=== PATIENT | male | born 1980 | race African-American/Black ===

== ENCOUNTER 2017-07-18 15:45 | Emergency (ER) | payer SELFPAY ==
[~2017-07-18] VITALS: Ht 167.6 cm; Wt 72.7 kg
[2017-07-18 16:17] LABS: BASOPHILS % (AUTO) 0.9 % (0.0-2.0); EOSINOPHILS % (AUTO) 7.8 % (1.0-6.0); HEMATOCRIT 41.9 % (41-53); HEMOGLOBIN 14.3 g/dL (13.5-17.5); LYMPHOCYTES # (AUTO) 2.2 K/uL (1.0-4.8); LYMPHOCYTES % (AUTO) 28.8 % (22.0-44.0); MEAN CORPUSCULAR VOLUME 91 fL (80-100); MONOCYTES # (AUTO) 0.8 K/uL (0.1-1.0); MONOCYTES % (AUTO) 10.4 % (2.0-9.0); NEUTROPHILS # (AUTO) 3.9 K/uL (1.8-7.7); NEUTROPHILS % (AUTO) 52.1 % (40.0-70.0); PLATELET COUNT (AUTO) 256 K/uL (150-450); RED CELL DISTRIBUTION WIDTH 13.7 % (11.5-14.5); WHITE BLOOD COUNT (AUTO) 7.5 K/uL (4.5-11.0)
[2017-07-18 16:30] LABS: ANION GAP 9 mmol/L (8-16); CARBON DIOXIDE 27 mmol/L (22-29); CHLORIDE 107 mmol/L (98-107); CREATININE 1.48 mg/dL (0.60-1.30); GLOMERULAR FILTR. RATE CALC > 60 mL/min (>60); POTASSIUM 3.7 mmol/L (3.5-5.1); SODIUM SERUM 143 mmol/L (136-145); UREA NITROGEN, BLOOD 11 mg/dL (7-18)
[2017-07-18 16:34] LABS: ALANINE AMINOTRANSFERASE 42 U/L (12-78); ALBUMIN 3.3 g/dL (3.4-5.0); ASPARTATE AMINOTRANSFERASE 32 U/L (15-37); BILIRUBIN,TOTAL 0.2 mg/dL (0.1-1.0); TOTAL PROTEIN, SERUM 6.6 g/dL (6.4-8.2)
[2017-07-18 16:44] LABS: APPEARANCE,URINE CLEAR (CLEAR); GLUCOSE, URINE (UA) NEGATIVE (NEGATIVE); KETONES,URINE NEGATIVE (NEGATIVE); LEUKOCYTE ESTERASE ,URINE NEGATIVE (NEGATIVE); OCCULT BLOOD,URINE NEGATIVE (NEGATIVE); PROTEIN,URINE NEGATIVE (NEGATIVE)
[2017-07-18] MEDS ORDERED: ONDANSETRON HCL 4 MG/2 ML VIAL IVP ONE (16:45)
[2017-07-18] MEDS ORDERED: SODIUM CHLORIDE 0.9% 1,000 ML IV ONE (16:45)
[2017-07-18 17:05] LABS: ADD UA MICROSCOPIC NO
[2017-07-18 17:52] VITALS: BP 128/87
== END 2017-07-18 18:24 | disposition home or self-care (01) ==
LOC: EMS 15:45
DX: R10.9 Unspecified abdominal pain (principal); R11.2 Nausea with vomiting, unspecified; R19.7 Diarrhea, unspecified
CPT/HCPCS: 93005; 99285

== ENCOUNTER 2020-04-10 00:14 | Emergency (ER) | payer MEDICAID ==
[~2020-04-10] VITALS: Ht 167.6 cm; Wt 70.5 kg
[2020-04-10] MEDS ORDERED: PERTUSS(ACELL),DIPH,TET VAC/PF 0.5 ML VIAL IM ONE (02:00)
[2020-04-10] MEDS ORDERED: LIDOCAINE 5% 36 GM OINTMENT TP ONE (02:00)
[2020-04-10] MEDS ORDERED: AMOX TR/POT CLAV 500 MG/125 MG TABLET PO ONE (02:00)
[2020-04-10] MEDS ORDERED: LIDOCAINE 4% 50 ML SOLUTION TP ONE (02:15)
[2020-04-10 03:30] VITALS: BP 151/98
[2020-04-10] MEDS ORDERED: AMOX TR/POT CLAV 875 MG/125 MG TABLET ONE (03:50)
[2020-04-10] MEDS ORDERED: AMOX TR/POT CLAV 875 MG/125 MG TABLET PO ONE (04:45)
== END 2020-04-10 04:53 | disposition home or self-care (01) ==
LOC: EMS 00:14
DX: S01.81XA Laceration without foreign body of other part of head, initial encounter (principal); F12.90 Cannabis use, unspecified, uncomplicated; W50.3XXA Accidental bite by another person, initial encounter; Y93.89 Activity, other specified; Y92.89 Other specified places as the place of occurrence of the external cause; Y99.8 Other external cause status
CPT/HCPCS: 90715

== ENCOUNTER 2024-12-23 09:43 | Emergency (ER) | payer MEDICAID, OTHER ==
[~2024-12-23] VITALS: Ht 167.6 cm; Wt 77.3 kg
[2024-12-23 09:45] VITALS: TEMP 98.3
[2024-12-23] MEDS ORDERED: DIVA125C20 PO (09:51)
[2024-12-23] MEDS ORDERED: PROP20TA96 PO (09:51)
[2024-12-23] MEDS ORDERED: SENN-374 PO (09:51)
[2024-12-23] MEDS ORDERED: DULO-113 PO (09:51)
[2024-12-23] MEDS ORDERED: GABA-534 PO (09:51)
[2024-12-23] MEDS ORDERED: AMLO5TAB66 PO (09:51)
[2024-12-23 11:20] VITALS: BP 133/85; PULSE 100; RESP 17; O2SAT 98
[2024-12-23 11:32] LABS: BASOPHILS % (AUTO) 0.6 % (0.0-2.0); EOSINOPHILS % (AUTO) 1.3 % (1.0-6.0); HEMOGLOBIN 14.5 g/dL (13.5-17.5); LYMPHOCYTES # (AUTO) 2.4 K/uL (1.0-4.8); LYMPHOCYTES % (AUTO) 27.6 % (22.0-44.0); MEAN CORPUSCULAR HEMOGLOBIN 30.7 pg (26.0-34.0); MEAN CORPUSCULAR VOLUME 93 fL (80-100); MONOCYTES # (AUTO) 1.1 K/uL (0.1-1.0); MONOCYTES % (AUTO) 12.4 % (2.0-9.0); NEUTROPHILS % (AUTO) 58.1 % (40.0-70.0); PLATELET COUNT (AUTO) 213 K/uL (150-450); RED BLOOD CELL COUNT(AUTO) 4.73 MIL/uL (4.50-5.90); WHITE BLOOD COUNT (AUTO) 8.6 K/uL (4.5-11.0)
[2024-12-23 11:38] LABS: ANION GAP 6 mmol/L (8-16); CALCIUM, TOTAL 9.5 mg/dL (8.8-10.5); CARBON DIOXIDE 32 mmol/L (22-29); CHLORIDE 105 mmol/L (98-107); CREATININE 0.97 mg/dL (0.60-1.30); GLOMERULAR FILTR. RATE CALC > 60 mL/min (>60); GLUCOSE,RANDOM 93 mg/dL (70-110); POTASSIUM 3.6 mmol/L (3.5-5.1); SODIUM SERUM 143 mmol/L (136-145); UREA NITROGEN, BLOOD 8 mg/dL (7-18)
[2024-12-23 12:05] LABS: ALCOHOL, BLOOD (SERUM) < 3 mg/dL (0-10)
== END 2024-12-23 12:18 | disposition left against medical advice (07) ==
LOC: EMS 09:47
DX: F19.11 Other psychoactive substance abuse, in remission (principal); F12.90 Cannabis use, unspecified, uncomplicated; F16.10 Hallucinogen abuse, uncomplicated; G82.20 Paraplegia, unspecified; Z79.899 Other long term (current) drug therapy; Z87.820 Personal history of traumatic brain injury; Z98.890 Other specified postprocedural states
CPT/HCPCS: 99283; 80048; 85025; 36415; G0480